=== PATIENT | male | born 2005 | race Caucasian/White ===

== ENCOUNTER 2024-03-07 06:33 | Emergency (ER) | payer OTHER ==
[~2024-03-07] VITALS: Ht 185.4 cm; Wt 81.8 kg
[2024-03-07 06:41] VITALS: TEMP 97.8
[2024-03-07] MEDS ORDERED: NORCO 325 MG-51 TAB PO (07:44)
[2024-03-07] MEDS ORDERED: CEPHALEXIN500 M1 PO (07:44)
[2024-03-07] MEDS ORDERED: cefTRIAXone 1 G,Lidocaine PF 1% 2.1 ML IM ONE (07:45)
[2024-03-07 08:05] VITALS: BP 123/78; PULSE 74
== END 2024-03-07 08:07 | disposition home or self-care (01) ==
LOC: COL.ER 06:33
DX: L02.416 Cutaneous abscess of left lower limb (principal)
CPT/HCPCS: J0696